=== PATIENT | male | born 1975 | race Caucasian/White ===

== ENCOUNTER 2020-05-26 15:43 | Emergency (ER) | payer OTHER ==
[~2020-05-26] VITALS: Ht 182.9 cm; Wt 82.7 kg
[2020-05-26 15:50] VITALS: Ht 182.9 cm; Wt 82.7 kg
[2020-05-26] MEDS ORDERED: KLONOPIN1 MG PO (15:53)
[2020-05-26] MEDS ORDERED: NORVASC5 MG PO (15:53)
[2020-05-26] MEDS ORDERED: GLUCOPHAGE1000 MG PO (15:54)
[2020-05-26] MEDS ORDERED: ASPIRIN81 MG PO (15:54)
[2020-05-26] MEDS ORDERED: LISINOPRIL20 MG PO (15:54)
[2020-05-26] MEDS ORDERED: FISH OIL 1,0001 CA1 PO (15:55)
[2020-05-26 16:03] VITALS: BP 121/99
[2020-05-26 16:10] LABS: BASOPHILS 0.3 % (0-2); EOSINOPHILS 0.7 % (0-7); HEMATOCRIT 53.6 % (42.0-54.0); HEMOGLOBIN 18.5 g/dL (13.5-17.5); IMMATURE GRANULOCYTES 0.2 % (0-5); LYMPHOCYTES 24.1 % (15-50); MCH 30.8 pg (26.0-34.0); MCHC 34.5 g/dL (31.0-37.0); MCV 89.2 fL (80.0-100.0); MEAN PLATELET VOLUME 12.3 fL (7.4-10.4); NEUTROPHILS 67.7 % (40-80); PLATELET COUNT 133 10x3/uL (130-400); RBC 6.01 10x6/uL (4.20-6.10); RDW 12.6 % (11.5-14.5); WBC 10.4 10x3/uL (4.8-10.8)
[2020-05-26 16:19] LABS: APTT 25.6 SECONDS (22.8-39.4); INR 1.05 (0.85-1.17); PROTIME 13.6 SECONDS (11.6-15.0)
[2020-05-26 16:23] LABS: CALC OSMOLALITY 284 mosm/kg (275-300); CALCIUM 9.7 mg/dL (8.5-10.1); CARBON DIOXIDE 30.1 mmol/L (21.0-32.0); CHLORIDE - SERUM 103 mmol/L (98-107); CREATININE - SERUM 1.1 mg/dL (0.6-1.3); GLUCOSE 259 mg/dL (74-106); POTASSIUM - SERUM 3.9 mmol/L (3.5-5.1); SODIUM 137 mmol/L (136-145); UREA NITROGEN 19 mg/dL (7-18); eGFR NON AFRICAN AMERICAN 77 mL/min (90-120)
[2020-05-26 16:39] LABS: ALBUMIN 4.1 g/dL (3.4-5.0); ALKALINE PHOSPHATASE 81 U/L (30-120); ALT (SGPT) 44 U/L (10-68); BILIRUBIN - TOTAL 0.52 mg/dL (0.2-1.3); CKMB 0.9 U/L (0.0-3.6); CREATINE KINASE 96 UL (21-232); PROTEIN - SERUM 7.6 g/dL (6.4-8.2)
[2020-05-26 16:40] LABS: TROPONIN-I < 0.017 ng/mL (0.000-0.060)
[2020-05-26 17:36] LABS: UDS - AMPHET NEGATIVE QUAL (NEGATIVE); UDS - BARB NEGATIVE QUAL (NEGATIVE); UDS - BENZO NEGATIVE QUAL (NEGATIVE); UDS - COCAINE NEGATIVE QUAL (NEGATIVE); UDS - OPIATE NEGATIVE QUAL (NEGATIVE); UDS - PCP NEGATIVE QUAL (NEGATIVE); UDS - THC POSITIVE QUAL (NEGATIVE)
[2020-05-26 17:38] LABS: BILIRUBIN NEGATIVE (NEGATIVE); KETONE LARGE mg/dL (NEGATIVE); NITRITE NEGATIVE (NEGATIVE); UROBILINOGEN NORMAL mg/dL (< 2)
[2020-05-26 17:39] LABS: BACTERIA FEW HPF (NONE SEEN); EPITHELIAL CELLS 0-5 /hpf (0-5); WHITE CELLS - URINE NSEEN HPF (0-1)
== END 2020-05-26 19:04 | disposition home or self-care (01) ==
LOC: D.ER 15:43
PROVIDERS: Family Medicine
DX: R07.9 Chest pain, unspecified (principal); K21.9 Gastro-esophageal reflux disease without esophagitis; I10 Essential (primary) hypertension; E11.9 Type 2 diabetes mellitus without complications; I25.10 Atherosclerotic heart disease of native coronary artery without angina pectoris

== ENCOUNTER 2021-01-19 05:55 | Day surgery (SDC) | payer OTHER ==
[2021-01-18 11:28] LABS: BASOPHILS 0.9 % (0-2); EOSINOPHILS 1.9 % (0-7); HEMATOCRIT 55.6 % (42.0-54.0); HEMOGLOBIN 19.6 g/dL (13.5-17.5); LYMPHOCYTES 20.4 % (15-50); MCH 31.2 pg (26.0-34.0); MCHC 35.2 g/dL (31.0-37.0); MCV 88.6 fL (80.0-100.0); MEAN PLATELET VOLUME 10.8 fL (7.4-10.4); MONOCYTES 5.9 % (2-11); NEUTROPHILS 70.9 % (40-80); PLATELET COUNT 136 10x3/uL (130-400); RBC 6.28 10x6/uL (4.20-6.10); RDW 13.2 % (11.5-14.5); WBC 10.3 10x3/uL (4.8-10.8)
[2021-01-18 11:35] LABS: CARBON DIOXIDE 28.3 mmol/L (21.0-32.0); CHLORIDE - SERUM 94 mmol/L (98-107); POTASSIUM - SERUM 4.8 mmol/L (3.5-5.1); SODIUM 132 mmol/L (136-145); UREA NITROGEN 20 mg/dL (7-18)
[2021-01-18 11:39] LABS: CALC OSMOLALITY 282 mosm/kg (275-300); CREATININE - SERUM 0.9 mg/dL (0.6-1.3); GLUCOSE 366 mg/dL (74-106); eGFR NON AFRICAN AMERICAN > 90 mL/min (90-120)
--- NOTE | 2021-01-18 12:03 | NUR ---
spoke with juno at dr guajardo's office about pt's glucose being 366. she stated she will let know. explained to juno I told pt to take his metformin in am d/t him having such high glucoses daily. pt mikayla
[~2021-01-19] VITALS: Ht 182.9 cm; Wt 84.6 kg
--- NOTE | ~2021-01-19 | OP ---
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 PROCEDURE: Anterior cervical discectomy and fusion at C4-C5 with removal of osteophytes and bilateral anterior foraminotomy at C4-C5, a PEEK interbody cage, Julia bone allograft and [employer] anterior cervical plate and screws. SURGEON: Estefany Paniagua MD DESCRIPTION AND TECHNIQUE: After induction of general endotracheal anesthesia, the patient was positioned supine on the operating table. Neck was prepped and draped in the usual sterile fashion. Fluoroscopic x-ray and freer localized the C4-C5 interspace. After infiltration of 1:100,000 epinephrine with 1% lidocaine, a transverse skin incision was carried out from the midline to the sternocleidomastoid muscle. The platysma was divided with sharp dissection. Using blunt and sharp dissection with Metzenbaum scissors, I proceeded in the avascular plane medial to the carotid sheath. The C4-C5 interspace was identified with fluoroscopic x-ray and spinal needle. The longus colli muscles were elevated from the bodies of C4 and C5. A self-retaining retractor was placed deep to the longus colli muscles. [place] distracting pins were placed in the bodies of C4 and C5. The annulus was incised with a #11 blade. A series of curettes and pituitary rongeurs were used to remove the cartilaginous endplates at C4 and C5. Under microscopic illumination, osteophytes were drilled away posteriorly on both sides. The posterior longitudinal ligament was removed with Cloward rongeurs. Following this, the dura over the central canal as well as the nerve roots was decompressed as well. A PEEK interbody cage was placed in the disc space under distraction. Prior to this, it was filled with Julia bone allograft. A [facility] anterior cervical plate and screws was used to span the C4-C5 interspace. Self-drilling screws were placed through the holes in the plate. The locking cams were tightened down over the screw heads. Good position of the hardware was confirmed with fluoroscopic x-ray. Meticulous hemostasis was maintained throughout the wound. Wound was irrigated with copious amounts of Ancef irrigant solution. The platysma and subdermal layer closed with interrupted 4-0 Vicryl suture. The skin was reapproximated with Steri-Strips and benzoin. A sterile dressing was applied to the wound. The patient was awakened in good condition and taken to recovery. All counts were reported as correct. ESTIMATED BLOOD LOSS: Minimal. TRANSINT:[id number] Voice Confirmation ID: [id number] DOCUMENT ID: [id number] OPERATIVE REPORT [id number] LISA ALAN JOHN MD CC: [id number] DICTATION DATE: 01/31/21 1143 [employer] BODY PAINTER: 01/31/21 1204 [facility] 01/20/[address] [address]
[~2021-01-19 05:55] MED LIST: ASPIRIN81 MG PO; FISH OIL 1,0001 CA1 PO; GLUCOPHAGE1000 MG PO; KLONOPIN1 MG PO; LISINOPRIL20 MG PO; LOPRESSOR25 MG PO; NORVASC5 MG PO
[2021-01-19] MEDS ORDERED: HUMULIN R100 UNIT/1 (07:44)
[2021-01-19 07:59] VITALS: BP 115/77; BMI 25.3
[2021-01-19 12:32] VITALS: BP 132/87
--- NOTE | 2021-01-19 12:35 | NUR ---
REC'D TO ROOM 2228 SITTING UP ON BED WITH HOB ELEVATED ABOVE 45 DEGREES WITH C- COLLAR IN USE. CAN EXPRESS NEEDS AND WANTS. NO C/O PAIN OR DISCOMFORT NOTED OR VOICED AT THIS TIME. AND C/L IN REACH A BEDSIDE.
[2021-01-19 14:55] VITALS: BP 115/69; Ht 182.9 cm; Wt 84.6 kg
[2021-01-19 20:00] VITALS: BP 119/72
[2021-01-20] VITALS: BP 110/75
[2021-01-20 04:00] VITALS: BP 112/72
--- NOTE | 2021-01-20 04:27 | NUR ---
ASSESSED AT THE BEGINNING OF THE SHIFT. PT IS ALERT AND ORIENTED, ABLE TO VERBALIZE NEEDS. HE IS WEARING HIS C-COLLAR AND HAS BEEN UP WALKING TO THE ER A COUPLE OF TIME. PAIN MEDS HAVE BEEN GIVEN ORDERED AND REQUESTED. GOING TO THE BATHROOM AD KATERINE AND ASLEEP IN THE BEDSIDE CHAIR BESIDE HIM.
--- NOTE | 2021-01-20 07:53 | NUR ---
PT APPROACHED NURSE STATION AND INFORMED STAFF THAT HE WAS GOING TO BE LEAVING AT 0800. CALLED DR HURT OFFICE AND SPOKE WITH HIS NURSE, SHE WAS GOING TO SEND DR HURT A TEXT BUT HE WAS TO BE IN SURGERY THIS MORNING AND MAY NOT GET THE TEXT IN TIME. LET HER KNOW THE AMA FORM WAS GOING TO BE READY AND PT'S PLAN TO LEAVE.
--- NOTE | 2021-01-20 08:02 | NUR ---
PT LEFT AMA ACCOMPNAIED BY SPOUSE, PT IN STABLE CONDITION, AMA FORMS SIGNED, IV REMOVED, TIP INTACT, COVERED WITH GAUZE AND TAPE
[2021-01-20] MEDS ORDERED: MEDROL DOSE PACK4 MG PO (18:27)
[2021-01-20] MEDS ORDERED: HYDROCODON-ACE1 EAC7 PO (18:27)
== END 2021-01-20 08:02 | disposition home or self-care (01) ==
LOC: D.OPS 05:55 → D.MS 11:30 → D.OPS 01-20 08:02
PROVIDERS: Anesthesiology; ATTEND Neurological Surgery
DX: M25.78 Osteophyte, vertebrae (principal); M50.121 Cervical disc disorder at C4-C5 level with radiculopathy; M75.42 Impingement syndrome of left shoulder

== ENCOUNTER 2021-01-20 15:02 | Emergency (ER) | payer OTHER ==
[~2021-01-20] VITALS: Ht 182.9 cm; Wt 84.1 kg
[~2021-01-20 15:02] MED LIST changes: +HUMULIN R100 UNIT/1
[2021-01-20 15:13] VITALS: Ht 182.9 cm; Wt 84.1 kg
[2021-01-20 16:39] VITALS: BP 159/106
[2021-01-20] MEDS ORDERED: HYDROCODON-ACE1 EAC7 PO (18:27)
[2021-01-20] MEDS ORDERED: MEDROL DOSE PACK4 MG PO (18:27)
== END 2021-01-20 18:52 | disposition home or self-care (01) ==
LOC: D.ER 15:02
DX: M54.2 Cervicalgia (principal); G89.18 Other acute postprocedural pain; E11.9 Type 2 diabetes mellitus without complications; I10 Essential (primary) hypertension; Z72.0 Tobacco use; Z79.84 Long term (current) use of oral hypoglycemic drugs